=== PATIENT | male | born 1985 | race Caucasian/White ===

== ENCOUNTER 2018-05-04 06:14 | Inpatient (IN) ==
[~2018-05-04 06:14] MED LIST: Bacitracin 50,000 UNIT, Polymyxin B Sulfate 500,000 UNIT, Sodium Chloride IRRigation 1,... IR ONE
[2018-05-04] MEDS ORDERED: CeFAZolin Syr 2,000MG/20 ML 2,000 MG/20 ML SYRINGE IVPB ONE (06:47)
[2018-05-04] MEDS ORDERED: Ringers Solution, Lactated 1,000 ML IVC SCH ×2 (07:00→12:35)
--- NOTE | 2018-05-04 07:07 | Anesthesia Evaluation PreOp ---
Date of Encounter: 05/04/18 Time of Encounter: 07:06 - Past History Planned Operation: PLIF L5-S1 Cardiac History: Hyperlipidemia Pulmonary History: Denies Any Significant HX, Snore UMBRELLA MENDER History: Denies Any Significant HX Other Medical History: Hepatic (fatty liver), GERD Anesthesia History: No Prior Anesthetic Complications, Past Anesthesia Alcohol Use: occasionally Drug use: none Medications and Allergies 3 Allergy/AdvReac Type Severity Reaction Status Date / Time prednisone Allergy Redness of Verified 04/25/18 16:05 Skin - Meds/Allergy Pre-op Review Medications Reviewed: Yes Allergies Reviewed: Yes Beta Blockers on Current Med List: No Anesthesia Results - Labs Laboratory Tests 04/25/18 04/25/18 04/25/18 16:12 16:12 16:12 WBC 8.3 Hgb 15.7 Hct 43.8 Plt Count 243 PT 11.0 INR 1.0 APTT 35.6 Sodium 136 Potassium 4.0 BUN 11 Creatinine 0.95 Anesthesia Exam O2 Sat Height 1.78 m Height 1.78 m Weight 94.347 kg Weight 94.347 kg O2 Sat by Pulse Oximetry 96 Vital Signs Temp Pulse Resp BP Pulse Ox 98.3 F 69 16 123/80 96 05/04/18 06:49 05/04/18 06:49 05/04/18 06:49 05/04/18 06:49 05/04/18 06:49 Height: 5'10" Weight: 208 lbs NPO (# of Hours): 8 Pain Scale: 0 Pain Scale Used: Numeric (1 - 10) - HEENT Pupil (Motor): EOMI Mallampati: II Teeth: Normal (chipped upper right and lower left molars) Oral Opening: Greater than 3 - UMBRELLA MENDER LOC: Oriented UMBRELLA MENDER Motor: Normal RUE, Normal LUE, Normal RLE, Normal Face, Deficit LLE UMBRELLA MENDER Sensory: Normal: RUE, LUE, RLE, LLE, Face - Cardiac Rhythm: Regular Murmur: None - Pulmonary Breath Sounds: bilateral Clear Respiratory Effort: Symmetrical Anesthesia Assess/Plan ASA Score: 2 Modified [place] Scale for Level of Consciousness: Cooperative, oriented, and tranquil Anesthetic Plan: General Monitoring Plan: Standard Monitors Recovery Plan: PACU
[2018-05-04] MEDS ORDERED: *HR* Succinylcholine 200 MG/10 ML VIAL IVP ONE (07:15)
[2018-05-04] MEDS ORDERED: Lidocaine -MPF 2% 2 ML VIAL ONE (07:15)
[2018-05-04] MEDS ORDERED: *HR* Rocuronium Bromide 50 MG/5 ML VIAL ONE (07:15)
[2018-05-04] MEDS ORDERED: Lidocaine -MPF 4% 5 ML AMPUL ONE (07:15)
[2018-05-04] MEDS ORDERED: Ondansetron 4 MG/2 ML VIAL ONE (07:15)
[2018-05-04] MEDS ORDERED: Dexamethasone 4 MG/ML VIAL ONE (07:15)
[2018-05-04] MEDS ORDERED: *HR* Midazolam HCl 2 MG/2 ML VIAL ONE (07:18)
[2018-05-04] MEDS ORDERED: *HR* Remifentanil 1 MG VIAL IVP ONE (07:18)
[2018-05-04] MEDS ORDERED: *HR* Propofol 200 MG/20 ML VIAL IVP ONE (07:18)
[2018-05-04] MEDS ORDERED: *HR* FentaNYL (PF) 100 MCG/2 ML VIAL ONE (07:18)
[2018-05-04] MEDS ORDERED: Propofol 500 MG/50 ML INFUS..BTL ONE (07:29)
[2018-05-04] MEDS ORDERED: Acetaminophen IV 1,000 MG/100 ML INFUS..BTL ONE (07:56)
--- NOTE | 2018-05-04 08:08 | History & Physical Report ---
Date of Encounter: 05/04/18 Time of Encounter: 08:08 24 Hour HP Update - Instructions Instructions: If the History and Physical is less than 30 days old and was completed prior to A.M. admission and or procedure and has NOT been updated on calendar day of procedure please complete this update prior to performing procedure. - Update Patient reports changes in Medical Condition: No Changes in examination, assessment, or condition: No Changes in Medication: No Preop tests/diagnostics Reviewed: Yes Pre-Op MRSA Screen: Negative Surgery Remains Indicated: Yes Consent for Planned Operative Procedure(s) Verified: Yes - Pre-Operative Checklist Preoperative Checklist Indicated: No Prophylactic Antibiotic Ordered: Yes Home Medications Include Beta Alyson: No Beta Alyson Taken Today (Day of Surgery): No Beta Alyson Taken Yesterday (Day Prior to Surgery): No Is VTE Prophylaxis Indicated?: Yes
[2018-05-04] MEDS ORDERED: *HR* Labetalol 20 MG/4 ML SYRINGE IVP PRN (09:01)
[2018-05-04] MEDS ORDERED: *HR* Promethazine 25 MG/ML VIAL IVP PRN (09:01)
[2018-05-04] MEDS ORDERED: Ondansetron 4 MG/2 ML VIAL IVP ONE (09:01)
[2018-05-04] MEDS ORDERED: *HR* OxyCODONE Immed Rel 5 MG TABLET PO PRN (09:01)
[2018-05-04] MEDS ORDERED: *HR* PHENYLEPHRINE 1,000 MCG/10 ML SYRINGE IVP ONE (09:23)
[2018-05-04] MEDS ORDERED: Neostigmine Methylsulfate 3 MG/3 ML SYRINGE ONE (09:48)
[2018-05-04] MEDS ORDERED: EPHEDrine 50 MG/ML VIAL ONE (10:00)
--- NOTE | 2018-05-04 11:13 | Orthopedic Operative Note ---
Date of procedure: 05/04/18 Pre-op diagnosis: Lumbar stenosis, lumbar radiculopathy Post-op diagnosis: same Operation/Findings: Posterior lumbar interbody fusion L5-S1:The patient successfully underwent general endotracheal anesthesia. The patient was given antibiotics prior to the start of the procedure. Compression boots and stockings were used for deep vein thrombosis prophylaxis. A Landry catheter was placed. Leads for neuro monitoring were placed on the upper and lower extremities. This included the cranium. The neuro monitoring personnel confirmed there were satisfactory readings prior to the start of the procedure. The patient was turned prone on the Rogelio table. The back was prepped and draped in the usual sterile fashion. An incision was was marked and centered over the involved L5-S1 levels in the mid line. The incision was deepened through the lumbar fascia. Bovie cautery and Ramsay elevators were used to reflect the paraspinal musculature at the lateral extent of the transverse processes of the involved L5 and S1 levels. Christa clamps were placed over the L5 and S1 spinous processes. An intraoperative lateral fluoroscopy graft was obtained. A conversation was held between the surgeon and radiologist and both confirmed we had the correct operative levels. We then placed pedicle screws in standard fashion with the aid of fluoroscopy and anatomic landmarks. Briefly a starter awl was used. A gearshift was subsequently used to enter the medical radiation dosimetrist hole via a transpedicular route into the vertebral body. The medical radiation dosimetrist hole was tapped with an undersized instrument, and subsequently four 6.5 x 40 mm pedicle screws were placed bilaterally at the indicated L5 and S1 levels. The screws were tested with the aid of the neurologic monitoring staff via pedicle screw stimulation. All reading suggested there was no significant cortical wall breech. The screws were also evaluated fluoro- graphically and appeared to be in satisfactory position. We then turned our attention to the decompression portion of the procedure. We removed the supraspinous and interspinous ligaments and subsequently the insertion of the ligamentum flavum on the undersurface of the proximal L5 lamina was dislodged with a curette. We then removed the ligamentum flavum as well as undercut the L5-S1 facets at this level to decompress the lateral recesses. We also performed a L5 laminectomy. After the decompression, which was over and above that which was required to place the interbody graft, the foramen and traversing roots at this L5-S1 level were found to be free and patent. We then protected the neural elements including the thecal sac and traversing nerve root on the left with a dural retractor. We made an annulotomy into the L5-S1 disc space and then removed entire disc material using Pituitary instruments. We trialed various size grafts after the endplates were prepared for graft insertion. An 8 x 26 enter body graft fit well within the L5-S1 disc space. We obtained some bone from the left posterior superior iliac spine through us a separate incision and combined with this with the bone which we had saved from the L5 laminectomy portion of the procedure. This autograft bone was first placed in the anterior portion of the L5-S1 disc space and additional bone was placed within the interbody graft spacer. We then placed the interbody graft spacer obliquely across the disc space towards the midline while protecting the neural elements with a root retractor. When the graft was found to be in satisfactory position the boiler control room operator was removed. We then copiously irrigated the wound. We then decorticated the L5 transverse processes as well as the L5-S1 facet joints of the involved L5 and S1 levels to aid in the posterolateral fusion. We placed autograft bone in the lateral gutters over these regions. We then placed rods within the screw heads of the involved L5-S1 levels and first locked the distal screws and then subsequently locked the proximal screws. We then closed the wound in layers with 1 Vicryl for the fascia, 2-0 Vicryl. Subcutaneous tissue, and Dermabond was used for skin closure. Sterile dressings were placed over the wound. The patient was turned supine on a hospital bed and extubated. All sponge instruments and needle counts were correct at the end of the procedure. The patient tolerated the procedure well without complications. Anesthesia: GETA Surgeon: Gerard Hamm Jr Was there an field assistant present: No Estimated blood loss (cc): 175 Specimen: None Condition: stable Disposition: PACU
[2018-05-04] MEDS: *HR* Meperidine 25 MG/ML SYRINGE IVP PRN ×2 (11:31→11:46)
[2018-05-04] MEDS ORDERED: Ketorolac 15 MG/ML VIAL IVP ONE (11:56)
--- NOTE | 2018-05-04 12:26 | Anesthesia Evaluation Post Op ---
Date of Encounter: 05/04/18 Time of Encounter: 12:10 - Vital Signs Vital Signs: Selected Entries 05/04/18 12:12 Temperature 100 F H Pulse Rate 82 Respiratory Rate 14 Blood Pressure 119/65 O2 Sat by Pulse Oximetry 93 - Lungs Lungs: Clear Ascult./Percussion - Airway Airway: Non-obstructed - Mental Status Mental Status: Alert & Oriented, Answers Appropriately - Nausea Vomiting Nausea Vomiting: Not Present - Hydration Hydration: Ice chips - Discharge PostOp Status: Transfer Patient to floor
[2018-05-04] MEDS ORDERED: Naloxone 0.4 MG/ML INJ IVP PRN (12:35)
[2018-05-04] MEDS ORDERED: Acetaminophen 325 MG TABLET PO PRN (12:35)
[2018-05-04] MEDS: *HR* HYDROcodone/Acet 5/325 mg TABLET PO PRN (15:29)
[2018-05-04] MEDS: *HR* OxyCODONE Immed Rel 5 MG TABLET PO PRN (19:50)
[2018-05-05] MEDS: *HR* HYDROcodone/Acet 5/325 mg TABLET PO PRN ×3 (02:42→21:08)
[2018-05-05] MEDS: *HR* OxyCODONE Immed Rel 5 MG TABLET PO PRN ×4 (08:59→23:44)
[2018-05-05] MEDS: Simethicone 80 MG TAB.CHEW PO PRN ×2 (14:28→23:44)
--- NOTE | 2018-05-05 17:35 | Spine Progress Note ---
Date of Encounter: 05/05/18 Time of Encounter: 17:35 Subjective Principal diagnosis: lumbar stenosis, lumbar radiculopathy Interval history: The patient is without complaints. Afebrile vital signs are stable. Incision is clean dry and intact. Neurovascularly intact with regard to bilateral lower extremities. Fires all upper and lower extremity motor groups. Negative straight leg raise. Assessment :stable. Plan mobilize ,continue analgesics, discharge planning. Objective Vital signs: Vital Signs Temp Pulse Resp BP Pulse Ox 05/05/18 15:54 99.1 F 95 16 118/73 94 05/05/18 14:59 98.4 F 89 20 105/62 94 05/05/18 11:04 98.3 F 93 16 109/65 95 05/05/18 06:42 98.0 F 85 16 129/72 96 05/05/18 03:48 99.1 F 92 17 121/76 95 05/05/18 00:07 98.6 F 95 17 111/69 94 05/04/18 20:30 94 05/04/18 19:22 98.3 F 102 17 124/76 94 Intake and Output 05/05/18 05/05/18 05/05/18 07:59 15:59 23:59 Intake Total 100 / 100 250 / 250 Output Total 1675 / 1675 1450 / 1450 Balance -1575 / -1575 -1200 / -1200 Intake: IV Fluids 100 / 100 Ancef 2,000 MG In 0.9 % Sodium 100 / 100 Chloride 100 ML @ 200 mls/hr IVPB Q8H [facility] Rx#:[id number] Oral 250 / 250 Output: Urine 1675 / 1675 1450 / 1450 Other: # Voids 2 2 Weight 94.5 kg Patient Weight 05/05/18 23:59 Weight 94.5 kg Consult Discharge Plan - Plan Referrals: Syed Velarde, JOSEFINA [Primary Care Provider] -
[2018-05-06] MEDS: *HR* HYDROcodone/Acet 5/325 mg TABLET PO PRN ×3 (03:00→17:51)
[2018-05-06] MEDS: *HR* OxyCODONE Immed Rel 5 MG TABLET PO PRN ×4 (05:53→21:54)
[2018-05-06] MEDS: Simethicone 80 MG TAB.CHEW PO PRN (10:17)
[2018-05-06] MEDS: Ondansetron 4 MG/2 ML VIAL IVP PRN (17:55)
--- NOTE | 2018-05-06 19:00 | Orthopedics Progress Note ---
Date of Encounter: 05/06/18 Time of Encounter: 12:55 Subjective Principal diagnosis: lumbar stenosis, lumbar radiculopathy Interval history: S: Patient doing well today. States pain is well controlled at this time. No events overnight. His only concern is constipation and abdominal discomfort. O: afebrile, laxim signs stable. Dressings c/d/i with no visible drainage or surrounding erythema. negative straight leg raise. He is neurovascularly intact with regard to bilateral lower extremities. A: POD#2 s/p PLIF L5-S1 05/04/18 P: continue postoperative care. wear brace with all activity No bending, twisting or lifting. 10lb weight limit. Use walker for ambulation. Will add miralax for the constipation. Encourage increased fluid intake. Plan for DC tomorrow with home health Objective Vital signs: Vital Signs Temp Pulse Resp BP Pulse Ox 05/06/18 18:53 98.8 F 95 18 115/73 95 05/06/18 14:47 98.3 F 91 18 124/75 94 05/06/18 11:21 98.7 F 77 18 103/68 95 05/06/18 06:47 98.4 F 113 18 117/76 94 05/06/18 03:08 99 F 97 18 121/75 95 05/05/18 23:03 99.4 F 105 18 106/64 95 05/05/18 20:00 95 Intake and Output 05/06/18 05/06/18 05/06/18 07:59 15:59 23:59 Intake Total 120 / 120 Output Total 1300 / 1300 700 / 700 Balance -1300 / -1300 -580 / -580 Intake: Oral 120 / 120 Output: Urine 1300 / 1300 700 / 700 Other: Meal Breakfast Percent of Meal Consumed 25% Weight 92.5 kg Patient Weight 05/06/18 23:59 Weight 92.5 kg Consult Discharge Plan - Plan Referrals: Syed Velarde, JOSEFINA [Primary Care Provider] -
[2018-05-07] MEDS: *HR* OxyCODONE Immed Rel 5 MG TABLET PO PRN ×3 (03:03→15:29)
[2018-05-07] MEDS: Ondansetron 4 MG/2 ML VIAL IVP PRN (11:12)
[2018-05-07] MEDS: *HR* HYDROcodone/Acet 5/325 mg TABLET PO PRN (11:12)
[2018-05-07 12:01] VITALS: BP 102/65
--- NOTE | 2018-05-07 15:54 | Discharge Summary ---
Orders not resulted at time of discharge: Pending orders 05/04/18 08:45 XR fluoroscopy <1 hr [XR] Routine Date of Encounter: 05/07/18 Time of Encounter: 15:53 - Hospital Course Hospital course: Mr. Marquis is a 33 year old male - Time Spent with Patient Total time spent providing and/or coordinating discharge services: - Discharge Medications Home Medications: Omeprazole [PriLOSEC] 40 mg PO DAILY 05/04/18 [History] Allergies/Adverse Reactions: 3 Allergy/AdvReac Type Severity Reaction Status Date / Time prednisone Allergy Redness of Verified 05/04/18 07:44 Skin Date of admission: 05/04/18 12:51 Primary care physician: Syed Ross Consults: 05/04/18 12:35 Consult to Occupational Therapy [CONS] Routine Comment: Evaluate, develop and implement POC Reason for Consult: Postoperative rehabilitation Does patient have active BEDREST order?: No Is patient medically & hemodynamically stable?: Yes Patient assessed for mobility or mobilized this visit?: No Consult to Physical Therapy [CONS] Routine Comment: Evaluate, develop and implement POC Reason for Consult: Postoperative rehabilitation Does patient have active BEDREST order?: No Is patient medically & hemodynamically stable?: Yes Patient assessed for mobility or mobilized this visit?: No Consult to Spine Navigator [CONS] [CONS] Routine - Impressions ITS Impressions Lumbar Spine X-Ray 05/04/18 08:45 IMPRESSION: 1. Status post posterior spinal fusion between L5 and S1 without immediate complications. D/ / Josue De Oliveira MD / Josue De Oliveira MD Interpreting Provider: Josue De Oliveira MD Lumbar Spine X-Ray 05/06/18 11:14 IMPRESSION: 1. No acute abnormality identified of the lumbar spine. 2. Posterior fusion at L5-S1 without convincing hardware complication. D/ / Demetrio Ingram MD / Demetrio Ingram MD Interpreting Provider: Demetrio Ingram MD - Additional Comments A: POD#3 s/p PLIF L5-S1 P: continue postoperative care. wear brace with all activity No bending, twisting or lifting. 10lb weight limit. Use walker for ambulation. We will discharge with a bedside commode - Patient Status Disposition: Home, Self-Care Condition: Good Functional capacity at discharge: uses cane/walker Overall status at discharge: patient is progressing back to baseline - Discharge Instructions Instructions: Lumbar Spinal Fusion (DC) Follow Up With: Julianna Gómez PAC [Physician [facility]] - Gerard Hamm Jr, MD [Partnered Physician] - (Web-requested) Syed Velarde CNP [Primary Care Provider] - Additional Instructions: Discharge Instructions: Lumbar Please call [facility] ([phone]), your Primary Care Physician, or report to the ER if you have any of the following symptoms: Fever greater that 101.5, increased pain/redness/drainage/odor for your incision site or any other concerning symptoms. ACTIVITY * May Shower * No Tub Baths * No lifting greater than 10 pounds * No Smoking * No Swimming * No off Ground Activities (Running, Climbing, Ladders, Horseback Riding) * No Driving * Wear Back Brace when up walking if lumbar fusion done * Incentive Spirometer 10 times an hour MEDICATIONS: Upon discharge resume your home medications. Take all the medications as prescribed. Take a stool softener if taking narcotic pain medications. Stool softeners are only effective if you drink enough fluids. Drink 6-8 glass of water or fluids a day, unless this is not allowed for another health problem. Despite using stool softeners, if you haven't had a bowel movement in 3 days, please switch to a gentle laxative. Gentle laxatives are sold over the counter. You should have a bowel movement within 24 hours, if not call the office. You will be discharged from the hospital with a prescription for pain medication. You are encouraged to decrease the use of narcotic pain medication as tolerated. Should you require a refill, please call the office. It is best to call 48-72 hours in advance of needing a prescription refill so you don't run out of medication. WOUND CARE: Remove Dressing Tomorrow. Leave incision open to air. Pat dry when you get out of the shower. FOLLOW-UP: Please follow up with your surgeon in the orthopedic clinic in 2 weeks from the day of surgery. References: [employer] ([email or web address])
== END 2018-05-07 15:57 | disposition home or self-care (01) | DRG 304 ==
LOC: SAMDAY 06:14 → 3NENU 12:51
PROVIDERS: ADMIT Orthopaedic Surgery Orthopaedic Surgery of the Spine; ATTEND Orthopaedic Surgery Orthopaedic Surgery of the Spine